=== PATIENT | male | born 1995 | race Caucasian/White ===

== ENCOUNTER 2018-10-13 07:46 | Emergency (ER) | payer OTHER | END 2018-10-13 10:45 | disposition home or self-care (01) | LOC: JER 07:46 ==

== ENCOUNTER 2018-10-18 13:19 | Emergency (ER) | payer OTHER ==
[2018-10-18 13:24] VITALS: TEMP 98.5; BMI 29.1
--- NOTE | 2018-10-18 13:24 | PDOC ---
Rapid Medical Evaluation Medical Evaluation: Allergies Allergy/AdvReac Type Severity Reaction Status Date / Time No Known Allergies Allergy Verified 10/13/18 07:51 I have performed a brief in-person evaluation of this patient. The patient presents with a chief complaint of: C/O L flank pain radiating to LLQ x 2 days; denies fever, n/v, hematuria, dysuria; also reports watery diarrhea x3 days; was seen in ED 10/13 for groin pain which he states is gone now Pertinent physical exam findings: In NAD, appears comfortable, no CVA tenderness , abdomen soft/NT I have ordered the following: Urine, Ucx The patient will proceed to the ED for further evaluation. 10/18/18 13:21
[2018-10-18] MEDS ORDERED: ONDANSETRON 4 MG/2 ML VIAL IVPUSH ONE (14:01)
[2018-10-18] MEDS ORDERED: SODIUM CHLORIDE 1,000 ML IV STA (14:01)
[2018-10-18] MEDS ORDERED: ONDANSETRON 4 MG/2 ML VIAL ONE (14:14)
--- NOTE | 2018-10-18 14:21 | PDOC ---
History of Present Illness - General Chief Complaint: Pain, Acute Stated Complaint: ABD. PAIN Time Seen by Provider: 10/18/18 13:21 History Source: Patient Exam Limitations: No Limitations - History of Present Illness Initial Comments: 10/18/18 14:21 CHIEF COMPLAINT: Abdominal pain HISTORY OF PRESENT ILLNESS: This is a previously healthy 23-year-old male who presents for evaluation of abdominal pain. The patient initially developed "pelvic" pain on 10/10. He was seen here in the ED on 10/13 complaining of pelvic/ groin pain. He had a scrotal ultrasound was negative for acute pathology and a UA that was negative for blood and leukocyte esterase. He was referred to urology for further evaluation. He followed up both with his PCP and with urology who did not determine a cause for his symptoms. On 10/15, he developed abdominal pain, bilateral flank pain (left worse than right), and diarrhea (5 episodes daily, nonbloody). He reports that he is not having pelvic/scrotal pain at this time. He and his mother who is at bedside reports that he has urinated much less than normal over the past 2 days. He has also had nausea, subjective fever, and shaking chills. Vital signs on arrival are notable for blood pressure 140/78. REVIEW OF SYSTEMS: GENERAL/CONSTITUTIONAL: Subjective fevers, rigors, malaise. No weakness. No weight change. HEAD, EYES, EARS, NOSE AND THROAT: No change in vision. No ear pain or discharge. No sore throat. CARDIOVASCULAR: No chest pain or palpitations. RESPIRATORY: No cough, wheezing, or shortness of breath. GASTROINTESTINAL: Nausea, diarrhea, abdominal pain (L>R). GENITOURINARY: Decreased urine output, flank pain (L>R). MUSCULOSKELETAL: No joint or muscle swelling or pain. No neck or back pain. SKIN: No rash or easy bruising. NEUROLOGIC: No headache, vertigo, loss of consciousness, or loss of sensation. PSYCHIATRIC: No depression or anxiety. ENDOCRINE: No increased thirst. No abnormal weight change. HEMATOLOGIC/LYMPHATIC: No anemia, easy bleeding, or history of blood clots. ALLERGIC/IMMUNOLOGIC: No hives or skin allergy. No latex allergy. PHYSICAL EXAM: GENERAL: The patient is awake, alert, and fully oriented, in no acute distress. HEAD: Normal with no signs of trauma. ENT: Pupils equal, round and reactive to light, extraocular movements intact, sclera anicteric, conjunctiva clear. Neck supple. LUNGS: Clear to auscultation bilaterally. Normal excursion. No respiratory distress or use of accessory muscles. CV: RRR, S1/S2, no MRG. Cap refill < 2 sec. ABDOMEN: Soft, non-distended, tender to palpation in LLQ, less in RLW, left CVA , less right CVa. EXTREMITIES: Normal range of motion, no edema. NEUROLOGICAL: Normal speech, normal gait. CN II-XII grossly intact. PSYCH: Normal mood, normal affect. SKIN: Warm, dry, normal turgor, no rashes or lesions noted. Past History - Past Medical History Allergies/Adverse Reactions: Allergies Allergy/AdvReac Type Severity Reaction Status Date / Time No Known Allergies Allergy Verified 10/18/18 13:25 Home Medications: Ambulatory Orders NK [No Known Home Medication] 10/18/18 Asthma: Yes COPD: No - Suicide/Smoking/Psychosocial Hx Smoking History: Never smoked Number of Cigarettes Smoked Daily: 1 Hx Alcohol Use: Yes Drug/Substance Use Hx: Yes *Physical Exam - Vital Signs Last Vital Signs Temp Pulse Resp BP Pulse Ox 98.5 F 67 16 140/78 99 10/18/18 13:22 10/18/18 13:22 10/18/18 13:22 10/18/18 13:22 10/18/18 13:22 ED Treatment Course - LABORATORY CBC & Chemistry Diagram: 10/18/18 14:00 10/18/18 14:00 - RADIOLOGY Radiology Studies Ordered: Category Date Time Status SPIRAL- RENAL-STONE CT [CT] Stat CT Scan 10/18/18 14:15 Ordered - Medications Given in the ED: ED Medications Discontinued Medications Generic Name Dose Route Start Last Admin Trade Name Freq PRN Reason Stop Dose Admin Ondansetron HCl 4 mg 10/18/18 14:01 10/18/18 14:20 Zofran Injection IVPUSH 10/18/18 14:02 4 mg ONCE ONE Administration Medical Decision Making - Medical Decision Making 10/18/18 14:27 A/P: 23-year-old male with abdominal/flank pain, diarrhea, decreased UOP, reported subj fever/rigors. Differential includes but is not limited to: colitis , UTI/pyelonephritis, renal colic. Rigors concerning for sepsis. 1. Bladder scan to assess for urinary retention 2. Labs including CBC, CMP, lactic acid, blood cultures 3. UA/culture (GC neg last visit) 4. IV fluids and Zofran 5. CTAP non-contrast 6. Re-assess 10/18/18 15:09 Bladder scan - 50 mL Labs notable for hgb 17.3 - dehydration? - no prior available 10/18/18 15:52 Signed out to MARLI Hung to follow up UA and CT result *DC/Admit/Observation/Transfer Diagnosis at time of Disposition: Lt groin pain - Discharge Dispostion Disposition: HOME Condition at time of disposition: Fair - Referrals Referrals: Angelo West MD [Primary Care Provider] - - Patient Instructions Additional Instructions: Avoid spicy foods. Avoid alcohol. Avoid caffeine. Avoid tobacco. You may take Tylenol and Motrin together for pain relief. Follow manufacture's instructions for appropriate dosage. Make an appointment with your urologist or your primary doctor for reevaluation. Return to the emergency department for any new or worsening symptoms. Thank you very much for choosing us to provide your emergent health care needs - Post Discharge Activity Forms/Work/School Notes: Back to Work
[2018-10-18 14:44] LABS: BASO % 0.2 % (0-2.0); EOS % 0.9 % (0-4.5); HEMATOCRIT 49.5 % (35.4-49); HEMOGLOBIN 17.3 GM/dL (11.7-16.9); LYMPH % 27.7 % (8-40); MCH 27.5 pg (25.7-33.7); MEAN CELL VOLUME 78.7 fl (80-96); MEAN PLT VOLUME 9.7 fl (7.5-11.1); MONO % 6.2 % (3.8-10.2); PLATELET COUNT 252 K/MM3 (134-434); RBC 6.28 M/mm3 (4.00-5.60); RDW 13.1 % (11.9-15.9); WHITE BLOOD COUNT 7.8 K/mm3 (4.0-10.0)
[2018-10-18 15:11] LABS: ALBUMIN 4.9 g/dl (3.4-5.0); BILIRUBIN,TOTAL 1.8 mg/dL (0.2-1); BLOOD UREA NITROGEN 13.1 mg/dL (7-18); CALCIUM 9.6 mg/dL (8.5-10.1); CREATININE 0.9 mg/dL (0.55-1.3); POTASSIUM 3.8 mmol/L (3.5-5.1); TOT PROT 7.9 g/dl (6.4-8.2)
[2018-10-18 16:26] LABS: PH,URINE 5.5 (5.0-8.0); URINE APPEARANCE CLEAR; URINE BILIRUBIN NEGATIVE (NEGATIVE); URINE COLOR YELLOW; URINE GLUCOSE (UA) NEGATIVE (NEGATIVE); URINE KETONE 3+ (NEGATIVE); URINE LEUK ESTERASE NEGATIVE (NEGATIVE); URINE NITRITE NEGATIVE (NEGATIVE); URINE PROTEIN NEGATIVE (NEGATIVE)
--- NOTE | 2018-10-18 16:29 | PDOC ---
*Physical Exam - Vital Signs Last Vital Signs Temp Pulse Resp BP Pulse Ox 98.5 F 67 16 140/78 99 10/18/18 13:22 10/18/18 13:22 10/18/18 13:22 10/18/18 13:22 10/18/18 13:22 - Physical Exam General Appearance: Yes: Appropriately Dressed. No: Apparent Distress Gastrointestinal/Abdominal: positive: Normal Bowel Sounds, Tender (LLQ), Soft Musculoskeletal: positive: Normal Inspection, CVA Tenderness (L). negative: Muscle Spasm, Vertebral Tenderness Extremity: positive: Normal Inspection Integumentary: positive: Normal Color, Dry, Warm ED Treatment Course - LABORATORY CBC & Chemistry Diagram: 10/18/18 14:00 10/18/18 14:00 - ADDITIONAL ORDERS Additional order review: Laboratory Results 10/18/18 10/18/18 10/18/18 16:04 14:00 14:00 Sodium 139 Potassium 3.8 Chloride 103 Carbon Dioxide 26 Anion Gap 10 BUN 13.1 Creatinine 0.9 Est GFR (CKD-EPI)AfAm 140.02 Est GFR (CKD-EPI)NonAf 120.81 Random Glucose 76 Lactic Acid 1.9 Calcium 9.6 Total Bilirubin 1.8 H AST 15 ALT 34 Alkaline Phosphatase 85 Total Protein 7.9 Albumin 4.9 Urine Color Yellow Urine Appearance Clear Urine pH 5.5 Ur Specific [place] 1.027 Urine Protein Negative Urine Glucose (UA) Negative Urine Ketones 3+ H Urine Blood Negative Urine Nitrite Negative Urine Bilirubin Negative Urine Urobilinogen 1.0 Ur Leukocyte Esterase Negative 10/18/18 14:00 RBC 6.28 H MCV 78.7 L MCHC 35.0 RDW 13.1 MPV 9.7 Neutrophils % 65.0 Lymphocytes % 27.7 Monocytes % 6.2 Eosinophils % 0.9 Basophils % 0.2 - Medications Given in the ED: ED Medications Discontinued Medications Generic Name Dose Route Start Last Admin Trade Name Freq PRN Reason Stop Dose Admin Sodium Chloride 1,000 mls @ 1,000 mls/hr 10/18/18 14:01 10/18/18 14:20 Normal Saline - IV 10/18/18 15:00 1,000 mls/hr ASDIR STA Administration Ondansetron HCl 4 mg 10/18/18 14:01 10/18/18 14:20 Zofran Injection IVPUSH 10/18/18 14:02 4 mg ONCE ONE Administration Progress Note - Progress Note Progress Note: Received signout from nurse practitioner Ana María. Briefly this a 23-year-old male with left lower quadrant and left flank pain, diarrhea, decreased urinary output and subjective fevers who presents emergency department for reevaluation of similar symptoms. Patient was seen and evaluated here on 10/15 with negative scrotal ultrasounds and urinalysis. Urine culture showed group B strep with a low colony count less than 10,000. No treatment was done at that time. Patient with follow-up with [facility] primary doctor and is concerned is still having symptoms. Previous bladder scan performed showed 50 mL of urine Hemoglobin 17.3 with hematocrit 49.5-? Hemoconcentration Chemistries unremarkable except for total bilirubin-1.8. Urinalysis notable for 3+ ketones and is not suggestive of infection. CTAP without contrast pending Medical Decision Making - Medical Decision Making 10/18/18 17:00 CT as read by Dr. Calix: No definite CT findings of acute pathology identified. No evidence of urolithiasis or hydronephrosis. Possible minimal to mild prostate enlargement I'll discharge the patient home to follow-up with urology and his primary doctor. I discussed the physical exam findings, ancillary test results and final diagnoses with the patient. I answered all of the patient's questions. The patient was satisfied with the care received and felt comfortable with the discharge plan and treatment plan. The patient will call their primary care physician within 24 hours to arrange follow-up and will return to the Emergency Department with any new, persistent or worsening symptoms. *DC/Admit/Observation/Transfer Diagnosis at time of Disposition: Lt groin pain - Discharge Dispostion Disposition: HOME Condition at time of disposition: Fair Decision to Admit order: No - Referrals Referrals: Angelo West MD [Primary Care Provider] - - Patient Instructions Additional Instructions: Avoid spicy foods. Avoid alcohol. Avoid caffeine. Avoid tobacco. You may take Tylenol and Motrin together for pain relief. Follow manufacture's instructions for appropriate dosage. Make an appointment with your urologist or your primary doctor for reevaluation. Return to the emergency department for any new or worsening symptoms. Thank you very much for choosing us to provide your emergent health care needs - Post Discharge Activity Forms/Work/School Notes: Back to Work
[2018-10-18 17:19] VITALS: BP 138/74; PULSE 68
== END 2018-10-18 17:19 | disposition home or self-care (01) ==
LOC: JER 13:19
PROC: 3E033GC Introduction of Other Therapeutic Substance into Peripheral Vein, Percutaneous Approach (ICD-10-PCS; principal; 2018-10-18)
DX: R10.32 Left lower quadrant pain (principal)
CPT/HCPCS: 36415; 74176-TC; 80053; 81003; 83605; 85025; 87040; 87086; 99283-25; J7030